=== PATIENT | female | born 1950 | race Caucasian/White ===

== ENCOUNTER 2017-04-11 14:32 | Emergency (ER) | payer OTHER, MEDICARE ==
[2017-04-11 16:57] VITALS: BP 137/91
[2017-04-13] MEDS ORDERED: GOOD NEIGHBOR PH5 MG (22:31)
[2017-04-13] MEDS ORDERED: COLACE100 MG (22:31)
[2017-04-13] MEDS ORDERED: REG5 (22:31)
[2017-04-13] MEDS ORDERED: TUMS REGULAR S500 MG (22:31)
[2017-04-13] MEDS ORDERED: ADULT LOW DOSE81 MG (22:32)
== END 2017-04-11 16:57 | disposition home or self-care (01) ==
LOC: ED 14:32
DX: N39.0 Urinary tract infection, site not specified (principal); G62.9 Polyneuropathy, unspecified; E11.9 Type 2 diabetes mellitus without complications; J45.909 Unspecified asthma, uncomplicated; K31.84 Gastroparesis; Z88.5 Allergy status to narcotic agent
CPT/HCPCS: 82962

== ENCOUNTER 2017-04-13 18:11 | Inpatient (IN) | payer OTHER, MEDICARE ==
[~2017-04-13] VITALS: Ht 175.3 cm; Wt 74.9 kg
[2017-04-13 20:49] LABS: BASOPHIL % 0.3 % (0-2); PLATELET COUNT 395 x10^3mcL (130-400); RED CELL DISTRIBUTION WIDTH 12.8 % (11.5-14.5)
[2017-04-13 20:56] LABS: CALCIUM 9.3 mg/dL (8.5-10.1); CARBON DIOXIDE 30.7 mmol/L (21-32); CHLORIDE SERUM 98 mmol/L (98-107); CREATININE SERUM 0.8 mg/dL (0.6-1.0); GFR1 > 60 mL/min; GLUCOSE SERUM 82 mg/dL (74-106); POTASSIUM SERUM 4.3 mmol/L (3.5-5.1); SODIUM SERUM 132 mmol/L (136-145)
[2017-04-13 21:00] LABS: ALBUMIN 3.6 g/dL (3.4-5.0); ALKALINE PHOSPHATASE 95 U/L (46-116); ALT/SGPT 58 U/L (14-59); AMYLASE 91 U/L (25-115); AST/SGOT 42 U/L (15-37); LIPASE 236 IU/L (73-393); TOTAL PROTEIN, SERUM 7.7 g/dL (6.4-8.2)
[2017-04-13] MEDS ORDERED: GOOD NEIGHBOR PH5 MG PO (22:31)
[2017-04-13] MEDS ORDERED: TUMS REGULAR S500 MG PO (22:31)
[2017-04-13] MEDS ORDERED: REG5 PO (22:31)
[2017-04-13] MEDS ORDERED: ADULT LOW DOSE81 MG PO (22:32)
[2017-04-13] MEDS ORDERED: LEVEMIR100 U/M1 (22:32)
[2017-04-13] MEDS ORDERED: BIAXIN FILMTAB500 MG (22:33)
[2017-04-13 23:09] VITALS: BP 115/59
[2017-04-14 01:17] VITALS: BP 115/59
[2017-04-14 01:29] LABS: CHOLESTEROL/HDL RATIO 3.2; MAGNESIUM 2.3 mg/dL (1.8-2.4); PHOSPHOROUS 3.6 mg/dL (2.5-4.9)
[2017-04-14 01:31] LABS: T3 TOTAL 1.19 ng/mL
[2017-04-14 01:41] LABS: FREE T4 1.35 ng/dL (0.76-1.46); FREE THYROXINE INDEX 3.6 ug/dL (1.4-4.5); T4(THYROXINE) 10.3 ug/dL (4.7-13.3)
[2017-04-14 06:01] VITALS: BP 135/69
[2017-04-14 06:11] LABS: BASOPHIL % 0.5 % (0-2); PLATELET COUNT 328 x10^3mcL (130-400); RED CELL DISTRIBUTION WIDTH 12.8 % (11.5-14.5)
[2017-04-14 06:51] LABS: CALCIUM 8.7 mg/dL (8.5-10.1); CARBON DIOXIDE 28.3 mmol/L (21-32); CHLORIDE SERUM 100 mmol/L (98-107); CREATININE SERUM 0.6 mg/dL (0.6-1.0); GFR1 > 60 mL/min; POTASSIUM SERUM 3.8 mmol/L (3.5-5.1); SODIUM SERUM 135 mmol/L (136-145)
[2017-04-14 06:59] LABS: ALBUMIN 3.1 g/dL (3.4-5.0); GLUCOSE SERUM 58 mg/dL (74-106)
[2017-04-14 07:38] LABS: UA SPECIFIC GRAVITY 1.015 (1.005-1.035); microscopic required? YES; urine erythrocyte 1+ (NEGATIVE)
[2017-04-14 07:42] LABS: AMPHETAMINE QUAL UR NONE DETECTED (NEG <=1000)
[2017-04-14 08:22] VITALS: BP 148/61
[2017-04-14 13:47] VITALS: BP 146/68
[2017-04-14 18:00] VITALS: BP 159/72
[2017-04-14 22:45] VITALS: BP 136/62
[2017-04-15 06:06] LABS: BASOPHIL % 0.4 % (0-2); PLATELET COUNT 307 x10^3mcL (130-400); RED CELL DISTRIBUTION WIDTH 13.1 % (11.5-14.5)
[2017-04-15 06:09] VITALS: BP 138/76
[2017-04-15 06:32] LABS: CALCIUM 8.7 mg/dL (8.5-10.1); CARBON DIOXIDE 24.5 mmol/L (21-32); CHLORIDE SERUM 98 mmol/L (98-107); CREATININE SERUM 0.6 mg/dL (0.6-1.0); GFR1 > 60 mL/min; GLUCOSE SERUM 121 mg/dL (74-106); MAGNESIUM 1.9 mg/dL (1.8-2.4); PHOSPHOROUS 3.6 mg/dL (2.5-4.9); POTASSIUM SERUM 3.6 mmol/L (3.5-5.1); SODIUM SERUM 131 mmol/L (136-145)
[2017-04-15 09:35] VITALS: BP 134/65
[2017-04-15 16:56] VITALS: BP 146/71
[2017-04-15 22:04] VITALS: BP 111/63
[2017-04-16 06:13] VITALS: BP 146/77
[2017-04-16 06:22] LABS: CALCIUM 8.9 mg/dL (8.5-10.1); CARBON DIOXIDE 26.1 mmol/L (21-32); CHLORIDE SERUM 99 mmol/L (98-107); CREATININE SERUM 0.6 mg/dL (0.6-1.0); GFR1 > 60 mL/min; GLUCOSE SERUM 128 mg/dL (74-106); POTASSIUM SERUM 3.9 mmol/L (3.5-5.1); SODIUM SERUM 134 mmol/L (136-145)
[2017-04-16 10:22] VITALS: BP 129/76
[2017-04-16] MEDS ORDERED: DUL10S RC (10:54)
[2017-04-16] MEDS ORDERED: ASCORBIC ACID500 M1 PO (10:57)
[2017-04-16] MEDS ORDERED: PREHO PR (11:20)
[2017-04-16] MEDS ORDERED: FLORASTOR1 CAP PO (11:27)
[2017-04-16] MEDS ORDERED: METAMUCIL660 GM PO (12:16)
[2017-04-16] MEDS ORDERED: DOCUSATE SODIU250 MG PO (12:17)
[2017-04-16 13:35] VITALS: BP 129/76
[2017-04-16] MEDS ORDERED: COLACE100 MG PO (22:31)
== END 2017-04-16 16:27 | disposition home health service (06) | DRG 73 ==
LOC: ED 18:11 → DU 21:52 → MU 21:52 → DU 23:02 → MU 04-15 06:49
PROVIDERS: Emergency Medicine; Family Medicine; ADMIT Family Medicine
DX: E11.44 Type 2 diabetes mellitus with diabetic amyotrophy (principal); N17.0 Acute kidney failure with tubular necrosis; E87.1 Hypo-osmolality and hyponatremia; D68.69 Other thrombophilia; G54.1 Lumbosacral plexus disorders; K59.09 Other constipation; K64.8 Other hemorrhoids; N31.8 Other neuromuscular dysfunction of bladder; E11.65 Type 2 diabetes mellitus with hyperglycemia; E11.59 Type 2 diabetes mellitus with other circulatory complications; I44.7 Left bundle-branch block, unspecified; E03.9 Hypothyroidism, unspecified; Z68.24 Body mass index [BMI] 24.0-24.9, adult; Z79.4 Long term (current) use of insulin; Z99.3 Dependence on wheelchair
CPT/HCPCS: 82962; 83880; 84439; 97110-GP; J1885; J2270; J2765; J3490; J7030; J7040; J7042; J7613; J8597; Q0092; Q9963

== ENCOUNTER 2017-08-04 14:12 | Inpatient (IN) | payer OTHER, MEDICARE, MEDICAID ==
[~2017-08-04] VITALS: Ht 175.3 cm; Wt 67.7 kg
[~2017-08-04 14:12] MED LIST: ADULT LOW DOSE81 MG PO; ASCORBIC ACID500 M1 PO; BIAXIN FILMTAB500 MG; COLACE100 MG PO; DOCUSATE SODIU250 MG PO; DUL10S RC; FLORASTOR1 CAP PO; GOOD NEIGHBOR PH5 MG PO; LEVEMIR100 U/M1; METAMUCIL660 GM PO; PREHO PR; REG5 PO; TUMS REGULAR S500 MG PO
[2017-08-04 15:53] LABS: BASOPHIL % 0.5 % (0-2); PLATELET COUNT 305 x10^3mcL (130-400); RED CELL DISTRIBUTION WIDTH 14.3 % (11.5-14.5)
[2017-08-04 16:15] LABS: CALCIUM 9.6 mg/dL (8.5-10.1); CHLORIDE SERUM 94 mmol/L (98-107); CREATININE SERUM 0.8 mg/dL (0.6-1.0); GFR1 > 60 mL/min; GLUCOSE SERUM 191 mg/dL (74-106); POTASSIUM SERUM 4.7 mmol/L (3.5-5.1); SODIUM SERUM 128 mmol/L (136-145)
[2017-08-04 16:20] LABS: ALBUMIN 3.6 g/dL (3.4-5.0); ALKALINE PHOSPHATASE 81 U/L (46-116); ALT/SGPT 36 U/L (14-59); AST/SGOT 24 U/L (15-37); BILIRUBIN TOTAL 0.3 mg/dL (0.20-1.00); TOTAL PROTEIN, SERUM 8.3 g/dL (6.4-8.2)
[2017-08-04 16:59] LABS: microscopic required? YES; urine erythrocyte NEGATIVE (NEGATIVE)
[2017-08-04 21:01] VITALS: BP 122/54
[2017-08-04 22:49] LABS: CHOLESTEROL/HDL RATIO 3.1; PHOSPHOROUS 4.3 mg/dL (2.5-4.9)
[2017-08-04 22:50] LABS: T3 TOTAL 1.1 ng/mL
[2017-08-04 23:01] LABS: FREE T4 1.14 ng/dL (0.76-1.46); FREE THYROXINE INDEX 3.3 ug/dL (1.4-4.5); T4(THYROXINE) 9.2 ug/dL (4.7-13.3)
[2017-08-05 06:19] VITALS: BP 129/57
[2017-08-05 06:23] LABS: BASOPHIL % 0.4 % (0-2); PLATELET COUNT 266 x10^3mcL (130-400); RED CELL DISTRIBUTION WIDTH 14.2 % (11.5-14.5)
[2017-08-05 06:38] LABS: CALCIUM 8.7 mg/dL (8.5-10.1); CARBON DIOXIDE 26.5 mmol/L (21-32); CHLORIDE SERUM 99 mmol/L (98-107); CREATININE SERUM 0.7 mg/dL (0.6-1.0); GFR1 > 60 mL/min; GLUCOSE SERUM 162 mg/dL (74-106); POTASSIUM SERUM 4.7 mmol/L (3.5-5.1); SODIUM SERUM 132 mmol/L (136-145)
[2017-08-05 08:50] VITALS: BP 101/47
[2017-08-05 12:27] VITALS: BP 100/51
[2017-08-05 12:27] LABS: AMPHETAMINE QUAL UR NONE DETECTED (NEG <=1000)
[2017-08-05 16:01] VITALS: BP 103/54
[2017-08-05 21:20] VITALS: BP 111/61
[2017-08-06 06:35] VITALS: BP 112/69
[2017-08-06 07:30] LABS: BASOPHIL % 0.5 % (0-2); PLATELET COUNT 237 x10^3mcL (130-400); RED CELL DISTRIBUTION WIDTH 14.1 % (11.5-14.5)
[2017-08-06 07:52] LABS: CALCIUM 8.8 mg/dL (8.5-10.1); CARBON DIOXIDE 25.7 mmol/L (21-32); CHLORIDE SERUM 103 mmol/L (98-107); CREATININE SERUM 0.6 mg/dL (0.6-1.0); GFR1 > 60 mL/min; GLUCOSE SERUM 82 mg/dL (74-106); MAGNESIUM 1.7 mg/dL (1.8-2.4); PHOSPHOROUS 3.9 mg/dL (2.5-4.9); SODIUM SERUM 135 mmol/L (136-145)
[2017-08-06 09:27] VITALS: BP 108/50
[2017-08-06 13:57] VITALS: BP 118/57
[2017-08-06 18:51] VITALS: BP 121/55
[2017-08-06 21:47] VITALS: BP 119/56
[2017-08-07 05:47] VITALS: BP 123/67
[2017-08-07 06:16] LABS: BASOPHIL % 0.5 % (0-2); PLATELET COUNT 235 x10^3mcL (130-400); RED CELL DISTRIBUTION WIDTH 14.5 % (11.5-14.5)
[2017-08-07 06:29] LABS: CALCIUM 8.7 mg/dL (8.5-10.1); CARBON DIOXIDE 26.9 mmol/L (21-32); CHLORIDE SERUM 103 mmol/L (98-107); CREATININE SERUM 0.7 mg/dL (0.6-1.0); GFR1 > 60 mL/min; GLUCOSE SERUM 133 mg/dL (74-106); MAGNESIUM 1.6 mg/dL (1.8-2.4); PHOSPHOROUS 3.4 mg/dL (2.5-4.9); POTASSIUM SERUM 3.9 mmol/L (3.5-5.1); SODIUM SERUM 136 mmol/L (136-145)
[2017-08-07 10:32] VITALS: BP 126/48
[2017-08-07 13:58] VITALS: BP 111/60
[2017-08-07] MEDS ORDERED: BEN25 PO (15:29)
[2017-08-07] MEDS ORDERED: ZINC SULFATE220 MG PO (15:30)
[2017-08-07] MEDS ORDERED: BG FS (15:30)
[2017-08-07] MEDS ORDERED: MAG PO (15:32)
[2017-08-07] MEDS ORDERED: MECLIZINE HCL12.5 MG PO (15:32)
[2017-08-07] MEDS ORDERED: DITROPAN XL10 MG PO (15:34)
[2017-08-07] MEDS ORDERED: VITC PO (15:35)
[2017-08-07] MEDS ORDERED: LAC PO (15:38)
[2017-08-07] MEDS ORDERED: LEVAQUIN750 MG PO (15:38)
[2017-08-07] MEDS ORDERED: OXYCODONE HCL10 MG PO (16:16)
[2017-08-07] MEDS ORDERED: COL100 PO (16:17)
[2017-08-07 16:24] VITALS: BP 111/60
[2017-08-07 17:38] VITALS: BP 131/78
== END 2017-08-07 17:53 | disposition home health service (06) | DRG 698 ==
LOC: ED 14:12 → DU 17:44
PROVIDERS: Emergency Medicine; ADMIT Family Medicine
DX: T83.511A Infection and inflammatory reaction due to indwelling urethral catheter, initial encounter (principal); N17.0 Acute kidney failure with tubular necrosis; M48.55XA Collapsed vertebra, not elsewhere classified, thoracolumbar region, initial encounter for fracture; E87.1 Hypo-osmolality and hyponatremia; N39.0 Urinary tract infection, site not specified; B95.61 Methicillin susceptible Staphylococcus aureus infection as the cause of diseases classified elsewhere; G57.93 Unspecified mononeuropathy of bilateral lower limbs; R42 Dizziness and giddiness; E86.0 Dehydration; E11.65 Type 2 diabetes mellitus with hyperglycemia; N31.9 Neuromuscular dysfunction of bladder, unspecified; N39.498 Other specified urinary incontinence; M47.896 Other spondylosis, lumbar region; E83.42 Hypomagnesemia; L89.151 Pressure ulcer of sacral region, stage 1; Z68.22 Body mass index [BMI] 22.0-22.9, adult; Z79.4 Long term (current) use of insulin; Z90.49 Acquired absence of other specified parts of digestive tract; Z93.2 Ileostomy status; Z99.3 Dependence on wheelchair
CPT/HCPCS: 83880; 84439; 97110-GP; 97116-GP; 97530-GP; J0696; J2270; J3010; J3475; J7030; Q0092